=== PATIENT | male | born 2000 | race Two or more races ===

== ENCOUNTER 2022-02-28 12:59 | Emergency (ER) | payer MEDICAID ==
[~2022-02-28] VITALS: Ht 165.1 cm; Wt 67.0 kg
[2022-02-28 13:04] VITALS: BP 125/69
[2022-02-28] MEDS ORDERED: ACET-1158 PO (14:18)
[2022-02-28] MEDS ORDERED: AMOX-277 PO (14:18)
== END 2022-02-28 14:45 | disposition home or self-care (01) ==
LOC: ER 13:01
DX: H66.91 Otitis media, unspecified, right ear (principal); Z79.2 Long term (current) use of antibiotics; Z79.899 Other long term (current) drug therapy